=== PATIENT | female | born 1990 | race Caucasian/White ===

== ENCOUNTER 2023-10-17 01:06 | Emergency (ER) | payer MEDICAID ==
[~2023-10-17] VITALS: Ht 162.6 cm; Wt 50.0 kg
[2023-10-17 01:09] VITALS: TEMP 99.1; O2SAT 99
[2023-10-17] MEDS ORDERED: SODIUM CHLORIDE 0.9% 1,000 ML IV ONE (01:30)
[2023-10-17] MEDS ORDERED: DIPHENHYDRAMINE 25MG CAPSULE PO ONE (01:30)
[2023-10-17] MEDS ORDERED: LORAZEPAM 1MG TABLET PO ONE (01:30)
[2023-10-17 02:17] LABS: BASOPHILS % 0.3 % (0.0-2.0); EOSINOPHILS % 0.6 % (0.0-5.0); HEMATOCRIT. 40.2 % (36.0-48.0); HEMOGLOBIN. 13.5 g/dL (12.0-16.0); LYMPHOCYTES % 7.8 % (20.0-50.0); MEAN CORPUSCULAR HEMOGLOBIN 31.1 pg (28.0-32.0); MEAN CORPUSCULAR HGB CONC 33.5 g/dL (31.0-37.0); MEAN PLATELET VOLUME 7.8 fl (7.4-10.4); MONOCYTES % 6.8 % (2.0-8.0); NEUTROPHILS % 84.5 % (40.0-76.0); PLATELET 388 x1000/uL (130-400); RED BLOOD CELL COUNT 4.32 mill/uL (4.2-5.4); RED CELL DISTRIBUTION WIDTH 13.1 % (11.6-14.6); WHITE BLOOD COUNT 16.5 x1000/uL (4.5-11.0)
[2023-10-17 02:32] LABS: ACETAMINOPHEN 7 ug/mL (10-30); ALANINE AMINOTRANSFERASE 20 IU/L (10-49); ASPARTATE AMINOTRANSFERASE 24 IU/L (<34); BILIRUBIN TOTAL 0.2 mg/dL (0.1-1.0); CALCIUM 8.8 mg/dL (8.7-10.4); CARBON DIOXIDE 22 mEq/L (21-32); CHLORIDE 105 mEq/L (98-107); CREATININE 0.8 mg/dL (0.6-1.0); GLUCOSE 109 mg/dL (70-105); POTASSIUM 3.4 mEq/L (3.5-5.1); PROTEIN TOTAL 6.6 g/dL (6.0-8.3); SODIUM 139 mEq/L (136-145); UREA NITROGEN BLOOD 11 mg/dL (9-23)
[2023-10-17 02:36] LABS: ETHANOL BLOOD < 10 mg/dL (<10)
[2023-10-17 03:02] LABS: HCG SCREEN NEGATIVE
[2023-10-17 04:36] VITALS: BP 124/90; PULSE 100; RESP 20
[2023-10-17] MEDS ORDERED: LORAZEPAM 1MG TABLET PO NR (04:45)
[2023-10-17] MEDS ORDERED: DIPHENHYDRAMINE 25MG CAPSULE PO NR (04:45)
== END 2023-10-17 04:58 | disposition home or self-care (01) ==
LOC: ER 01:06
DX: F16.10 Hallucinogen abuse, uncomplicated (principal); F41.0 Panic disorder [episodic paroxysmal anxiety]; I10 Essential (primary) hypertension; F17.200 Nicotine dependence, unspecified, uncomplicated; F12.10 Cannabis abuse, uncomplicated; F15.10 Other stimulant abuse, uncomplicated
CPT/HCPCS: 80053; 80307; 80329; 80320; 84703; 85025; 36415; 99283; Q0163; J7030; G0480